=== PATIENT | male | born 1950 | race African-American/Black ===

== ENCOUNTER 2019-06-07 11:04 | Emergency (ER) | payer MEDICARE ==
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
== END 2019-06-07 16:28 | disposition home or self-care (01) ==
LOC: ERS 11:04
DX: S39.012A Strain of muscle, fascia and tendon of lower back, initial encounter (principal); S80.01XA Contusion of right knee, initial encounter; I10 Essential (primary) hypertension; Z79.899 Other long term (current) drug therapy; V43.62XA Car passenger injured in collision with other type car in traffic accident, initial encounter
CPT/HCPCS: 72100

== ENCOUNTER 2020-07-05 06:56 | Outpatient (CLI) | payer MEDICARE, OTHER ==
[2020-07-05 11:38] LABS: Anion Gap 14 mmol/L (10-20); BUN (Urea Nitrogen) 21 mg/dL (8.4-25.7); Calc. Creatinine Clearance 0 mL/min (70-130); Carbon Dioxide 25 mmol/L (23-31); Chloride 102 mmol/L (98-107); Estimated GFR-MDRD 65; Glucose 104 mg/dL (80-115); Potassium 3.7 mmol/L (3.5-5.1); Sodium 137 mmol/L (136-145)
[2020-07-05 22:13] LABS: SARS-CoV-2 MS2 Positive; SARS-CoV-2 N Gene Negative; SARS-CoV-2 S Gene Negative; SARS-CoV-2 by NAA Not Detected (NotDetected); SARS-CoV-2 orf1ab Negative
== END 2020-07-05 06:57 | disposition home or self-care (01) ==
LOC: LABBT 06:56
PROVIDERS: ATTEND Neurological Surgery
DX: Z01.812 Encounter for preprocedural laboratory examination (principal); Z20.828 Contact with and (suspected) exposure to other viral communicable diseases; I77.0 Arteriovenous fistula, acquired
CPT/HCPCS: 80048; 87635; U0003

== ENCOUNTER 2020-07-08 06:39 | Day surgery (SDC) | payer SELFPAY ==
[2020-07-05 10:16] VITALS: BMI 40.0
[2020-07-08] MEDS ORDERED: Lidocaine 1% (PF) 30 ML VIAL ONE (08:55)
[2020-07-08] MEDS ORDERED: Heparin 10,000 UNITS/ 10 ML VIAL ONE (08:55)
[2020-07-08] MEDS ORDERED: Labetalol HCl 100 MG/20 ML VIAL ONE (11:56)
[2020-07-08] MEDS ORDERED: Iopamidol 370 76% 50 ML VIAL FS ONE (15:05)
--- NOTE | 2020-07-09 16:10 | CCLSPC ---
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 INDICATION: Third nerve palsy, left. PROCEDURE: Cerebral angiogram. DIAGNOSIS: Left third nerve palsy. ANESTHESIA: Local. TECHNIQUE: The patient was brought into the angiogram suite and placed on table in supine position. Both groins were prepped and draped in the usual sterile fashion. 1% lidocaine was used to inject the right groin. A 5-Georgian micropuncture set was used to gain access to the right common femoral artery. Using a Seldinger technique, the needle was removed and a 5-Georgian sheath was placed. A 5-Georgian Siddiqui-2 catheter passed over a [employer] guidewire was placed into the aortic arch where it was formed. The catheter was then placed within the left common carotid artery where an AP and lateral angiogram was performed. The catheters were then removed. The sheath was removed and hemostasis was maintained with manual compression. The procedure came to an end without known complication. IMPRESSION: The patient underwent successful cerebral angiography. There was no evidence for carotid cavernous fistula on the cerebral angiogram. Specifically, there appeared to be no congestion of either the superior or inferior ophthalmic vein. I see no evidence for early filling of the cavernous sinus. Job ID: [id number]
== END 2020-07-08 12:14 | disposition home or self-care (01) ==
LOC: CCL 06:39
PROVIDERS: ATTEND Neurological Surgery
PROC: B314ZZZ Fluoroscopy of Left Common Carotid Artery (ICD-10-PCS; principal; 2020-07-08)
DX: H49.02 Third [oculomotor] nerve palsy, left eye (principal)
CPT/HCPCS: 36215; 36222; J1644; J2001; Q9967

== ENCOUNTER 2025-06-04 07:59 | Outpatient (CLI) | payer MEDICARE | END 2025-06-04 08:00 | disposition home or self-care (01) | LOC: ULT 07:59 | PROVIDERS: ATTEND Family Medicine | DX: Z13.6 Encounter for screening for cardiovascular disorders (principal) | CPT/HCPCS: 76706 ==